=== PATIENT | female | born 1970 | race Two or more races ===

== ENCOUNTER → 2024-03-17 | Outpatient (CLI) | payer MEDICAID, SELFPAY ==
--- NOTE | 2024-03-17 | XR_ITS ---
Examination: Shoulder,right, 3 views Technique: Shoulder AP internal rotation, AP external rotation, Y view shoulder, 3 views Exam date and time :March 17, 2024 1237 hours INDICATIONS: Lifting injury to the shoulder, shoulder pain several years. FINDINGS: No shoulder fracture or shoulder dislocation Mild narrowing glenohumeral joint No calcific tendinitis IMPRESSION: Mild narrowing glenohumeral joint
== END | disposition home or self-care (01) ==
LOC: CDIM 11:57
PROVIDERS: PCP Internal Medicine; Referring Provider Internal Medicine; Visit Provider Internal Medicine
DX: M25.811 Other specified joint disorders, right shoulder (principal)
CPT/HCPCS: 73030

== ENCOUNTER → 2024-04-21 | Outpatient (CLI) | payer MEDICAID, SELFPAY ==
--- NOTE | 2024-04-21 15:52 | XR_ITS ---
Examination: Diagnostic digital mammography, bilateral Computer aided detection 3-D breast Tomosynthesis, bilateral Date and time of exam: April 21, 2024 at 1559 hours Compared to mammograms dating to October 06, 2018 INDICATIONS: Right breast pain 3 months history left breast biopsy Technique: Nonmagnified MLO, CC views of the breasts to been obtained, reconstructed from 3-D Tomosynthesis images. R2 computer aided detection program utilized for evaluation of suspicious masses and/or abnormal calcifications. 3-D Tomosynthesis images obtained. Findings: Scattered areas of fibroglandular density. Breast biopsy marker upper outer left breast Benign calcifications No suspicious masses Impression: BI-RADS Category 0: Incomplete: Need additional imaging evaluation Given the patient's presentation, recommend bilateral breast sonography follow-up.
== END | disposition home or self-care (01) ==
PROVIDERS: PCP Specialist; Referring Provider Specialist; Visit Provider Specialist
DX: R92.8 Other abnormal and inconclusive findings on diagnostic imaging of breast (principal)
CPT/HCPCS: 77062; 77066; G0279

== ENCOUNTER → 2024-05-08 | Outpatient (CLI) | payer MEDICAID, SELFPAY ==
--- NOTE | 2024-05-08 13:00 | XR_ITS ---
EXAMINATIONS: Transforaminal epidural steroid injection, lumbar, single level, includes fluoro guidance, right L5-S1. Fluoroscopy [facility] lumbar spine single view INDICATIONS: Right lower back pain months. Exam date and time: May 08, 2024 1355 hours Technique And Findings: Patient is positioned prone on the fluoroscopic table. Oblique fluoroscopic views obtained. Local anesthesia is obtained with 1% lidocaine. 22-gauge needle was advanced toward the 6:00 position of the pedicle. Fluoroscopy is utilized to ensure the needle tip is within the safe triangle After negative aspiration for blood and CSF, 1 cc Kenalog 40 is injected without difficulty. Patient tolerated the procedure well and in satisfactory and stable condition upon completion of procedure. Estimated blood loss 0 cc IMPRESSION: Successful transforaminal epidural steroid injection as described above Fluoroscopy 0.1 minute radiation dose 3.32 milligray 1 spot fluoroscopic lumbar spine film.
--- NOTE | 2024-05-08 13:00 | XR_ITS ---
EXAMINATIONS: Transforaminal epidural steroid injection, lumbar, single level, includes fluoro guidance, L4-L5 left. Fluoroscopy [place] lumbar spine single view INDICATIONS: Left-sided lower back pain months. Exam date and time: May 08, 2024 1319 hours Technique And Findings: Patient is positioned prone on the fluoroscopic table. Oblique fluoroscopic views obtained. Local anesthesia is obtained with 1% lidocaine. 22-gauge needle was advanced toward the 6:00 position of the pedicle. Fluoroscopy is utilized to ensure the needle tip is within the safe triangle After negative aspiration for blood and CSF, Kenalog 49 1 cc is injected without difficulty. Patient tolerated the procedure well and in satisfactory and stable condition upon completion of procedure. Estimated blood loss 0 cc IMPRESSION: Successful transforaminal epidural steroid injection as described above Fluoroscopy 0.1 minute radiation dose 3.32 milligray 1 spot fluoroscopic lumbar spine film.
== END | disposition home or self-care (01) ==
PROVIDERS: PCP Internal Medicine; Referring Provider Internal Medicine; Visit Provider Internal Medicine
DX: M46.96 Unspecified inflammatory spondylopathy, lumbar region (principal)
CPT/HCPCS: 64483; 64484